=== PATIENT | male | born 1985 | race Caucasian/White ===

== ENCOUNTER 2025-05-13 08:22 | Outpatient (CLI) | payer OTHER, SELFPAY | END 2025-05-13 08:23 | disposition home or self-care (01) | PROVIDERS: PCP Family Medicine; Visit Provider Family Medicine | DX: Z01.818 Encounter for other preprocedural examination (principal) | CPT/HCPCS: 80048; 85025 ==

== ENCOUNTER 2025-06-04 09:06 | Day surgery (SDC) | payer OTHER, BC, SELFPAY ==
[2025-06-04] VITALS (13 sets, daily range): BP systolic 112–133; BP diastolic 67–89; PULSE 55–74; RESP 12–16; TEMP 36.1–36.6; O2SAT 96–98; BMI 26.9
[2025-06-04] MEDS: LACTATED RINGERS 1000 ML 1,000 ML 100 ML IV (09:23)
[2025-06-04] MEDS: SODIUM CHLORIDE 0.9 % (FLUSH) 10 ML SYRINGE IVF (09:24)
[2025-06-04] MEDS: OXYMETAZOLINE 0.05% NASAL SPRAY 2 SPRAY NOSTRIL-B (09:35)
[2025-06-04] MEDS: SCOPOLAMINE 1 MG/3 DAY PATCH 1 PATCH TRANSDERMA (09:45)
--- NOTE | 2025-06-04 10:36 | P.ANES_ITS ---
Anesthesia Charges Start Date/Time Anesthesia Start Date: 06/04/25 Anesthesia Start Time: 10:48 Stop Date/Time Anesthesia Stop Date: 06/04/25 Anesthesia Stop Time: 11:37 Coding CPT Codes CPT Codes: ANESTH NOSE/SINUS SURGERY - 16034 ([id number]) P1 - NORMAL HEALTHY PATIENT, QK - DATA SECURITY CONSULTANT 2-4 CNCRNT ANES PROC, QX - LEATHER FITTER SVPerry W/ MED DIRECTION
--- NOTE | 2025-06-04 10:36 | W.ANESCHARGE ---
Anesthesia Charges Start Date/Time Anesthesia Start Date: 06/04/25 Anesthesia Start Time: 10:48 Stop Date/Time Anesthesia Stop Date: 06/04/25 Anesthesia Stop Time: 11:37 Coding CPT Codes CPT Codes: ANESTH NOSE/SINUS SURGERY - 64445 ([id number]) P1 - NORMAL HEALTHY PATIENT, QK - ENERGY INFRASTRUCTURE ENGINEER 2-4 CNCRNT ANES PROC, QX - BLANKET WINDER OPERATOR SVPerry W/ MED DIRECTION
[2025-06-04] MEDS: BUPIVACAINE 0.5%/EPINEPHRINE 0.9 MG (30.9 ML) INJECTION (10:58)
[2025-06-04] MEDS: MUPIROCIN 1 GM PACKET 1 APPLIC TOPICAL (11:03)
[2025-06-04] MEDS: AYR SALINE NASAL GEL 1 APPLIC NOSTRIL-B (11:05)
--- NOTE | 2025-06-04 11:36 | P.ANES_ITS ---
Anesthesia Charges Start Date/Time Anesthesia Start Date: 06/04/25 Anesthesia Start Time: 10:48 Stop Date/Time Anesthesia Stop Date: 06/04/25 Anesthesia Stop Time: 11:37 Coding CPT Codes CPT Codes: ANESTH NOSE/SINUS SURGERY - 41365 ([id number]) P1 - NORMAL HEALTHY PATIENT, QK - AFTER SCHOOL TEACHER 2-4 CNCRNT ANES PROC
--- NOTE | 2025-06-04 11:36 | W.PM.ENTPROC ---
Procedure Note Date of procedure: 06/04/25 Procedure: Preop diagnosis deviated septum, nasal obstruction, right inferior turbinate hypertrophy Postop same Procedure nasal septoplasty, submucous partial resection right inferior turbinate Under general trach anesthesia patient was prepped and draped usual fashion the nose injected and decongested. A right hemitransfixion incision was made bilateral anterior and posterior tunnels were created. A vertical incision was made cartilage from bone and a just anterior to the junction of the posterior deflected portions of septal bone resected. Anteriorly is very tiny 1 mm strip of inferior septum was removed allowing the septum to return to midline. Large piece of septal bone was returned to the intraseptal space. The hemitransfixion was closed with 2 4-0 chromic sutures. A stab incision was made in the right inferior turbinate anterior head and a tunnel created with a Gianfranco dissector. The crescencio bone was outfractured and a very conservative anterior submucous resection performed. The Coblation was used for hemostasis. Silastic stents were secured with 3-0 nylon and Merocel packing was placed above the stents on each side. The patient procedure well was taken recovery in satisfactory condition. Blood loss was Surgeon: Jackson Dangelo MD
--- NOTE | 2025-06-04 11:36 | W.ANESCHARGE ---
Anesthesia Charges Start Date/Time Anesthesia Start Date: 06/04/25 Anesthesia Start Time: 10:48 Stop Date/Time Anesthesia Stop Date: 06/04/25 Anesthesia Stop Time: 11:37 Coding CPT Codes CPT Codes: ANESTH NOSE/SINUS SURGERY - 05412 ([id number]) P1 - NORMAL HEALTHY PATIENT, QK - SUBCONTRACT ADMINISTRATOR 2-4 CNCRNT ANES PROC
== END 2025-06-04 13:24 | disposition home or self-care (01) ==
PROVIDERS: PCP Family Medicine; Visit Provider Otolaryngology
PROC: (CPT 30520; principal; 2025-06-04 10:15)
DX: J34.2 Deviated nasal septum (principal); J34.3 Hypertrophy of nasal turbinates; J34.89 Other specified disorders of nose and nasal sinuses
CPT/HCPCS: 30520; 30140; 00160; A9270; J0330; J1100; J2250; J2405; J2704; J3010; J7120